=== PATIENT | female | born 1975 | race Caucasian/White ===

== ENCOUNTER 2016-09-19 18:15 | Emergency (ER) | payer BC ==
--- NOTE | 2016-09-19 18:19 | PDOC ---
Rapid Medical Evaluation Time Seen by Provider: 09/19/16 18:17 Medical Evaluation: Allergies Allergy/AdvReac Type Severity Reaction Status Date / Time sumatriptan [From Imitrex] Allergy Verified 09/19/16 18:17 sumatriptan succinate Allergy Verified 09/19/16 18:17 [From Imitrex] 09/19/16 18:17 41 year old female with a history of migraines presenting with headache, photophobia, and nausea since 4am. No relief from Tylenol/ibuprofen. V/s unremarkable. -UA, urine -To Main ED for further evaluation
[2016-09-19 18:21] VITALS: BMI 27.3
[2016-09-19 18:37] LABS: URINE APPEARANCE CLEAR; URINE BILIRUBIN NEGATIVE (NEGATIVE); URINE BLOOD NEGATIVE (NEGATIVE); URINE COLOR LTYELLOW; URINE GLUCOSE (UA) NEGATIVE (NEGATIVE); URINE KETONE NEGATIVE (NEGATIVE); URINE NITRITE NEGATIVE (NEGATIVE); URINE PROTEIN NEGATIVE (NEGATIVE); URINE UROBILINOGEN NEGATIVE E.U./dl (0.2-1.0)
[2016-09-19] MEDS ORDERED: KETOROLAC TROMETHAMINE 60 MG/2 ML VIAL IM ONE (19:34)
[2016-09-19] MEDS ORDERED: SODIUM CHLORIDE 1,000 ML IV STA (19:36)
[2016-09-19] MEDS ORDERED: KETOROLAC TROMETHAMINE 30 MG/1 ML VIAL ONE (19:36)
--- NOTE | 2016-09-19 19:36 | PDOC ---
History of Present Illness - General History Source: Patient Exam Limitations: No Limitations - History of Present Illness Initial Comments: 09/19/16 19:58 The patient is a 41 year old female with significant past medical history of migraine headaches who presents to the ED with diffuse headache few hours prior to arrival. Patient reports she developed a diffuse headache today at 4pm that she rates as a 10/10 with associated photophobia and nausea, but no vomiting. She took tylenol without relief. States her migraines are not frequent and thus does not take any prescriptions for her migraines, however today it has been persistent with no resolution. The patient denies fever, chills, dizziness, visual changes, cough, SOB, chest pain, abdominal pain, and diarrhea. Allergies: sumatriptan, sumatriptan succinate Social History: No alcohol, tobacco, or drug use reported. Past Surgical History: None reported PCP: None reported <Valerie Melara - Last Filed: 09/19/16 19:58> - General History Source: Patient, Spouse <Monico Allan - Last Filed: 09/19/16 21:40> - General Chief Complaint: Migraine Headache Stated Complaint: MIGRAINE Time Seen by Provider: 09/19/16 18:17 Past History <Valerie Melara - Last Filed: 09/19/16 19:58> - Past Medical History Other medical history: migraines - Psycho/Social/Smoking Cessation Hx Anxiety: No Suicidal Ideation: No Smoking History: Never smoked Have you smoked in the past 12 months: Yes Information on smoking cessation initiated: No Hx Alcohol Use: No Drug/Substance Use Hx: No Substance Use Type: None <Monico Allan - Last Filed: 09/19/16 21:40> - Past Medical History Allergies/Adverse Reactions: Allergies Allergy/AdvReac Type Severity Reaction Status Date / Time sumatriptan [From Imitrex] Allergy Verified 09/19/16 18:17 sumatriptan succinate Allergy Verified 09/19/16 18:17 [From Imitrex] Home Medications: Ambulatory Orders Acetaminophen/Caffeine/Butalb [Fioricet -] 1 tab PO Q6H #30 tablet MDD 4 Amox-Tr/K Cl [Augmentin - 875Mg Tablet] 1 tab PO BID #14 tablet 09/19/16 Ibuprofen 800 mg PO TID #30 tablet 09/19/16 Metoclopramide HCl [Reglan -] 10 mg PO TID #30 tablet 09/19/16 Review of Systems - Review of Systems Able to Perform ROS?: Yes Comments:: 09/19/16 19:58 CONSTITUTIONAL: Absent: fever, no chills, no fatigue EYES: Absent: visual changes ENT: Absent: ear pain, no sore throat CARDIOVASCULAR: Absent: chest pain, no palpitations RESPIRATORY: Absent: cough, no SOB GI: +nausea Absent: abdominal pain, no vomiting, no constipation, no diarrhea GENITOURINARY: Absent: dysuria, no frequency, no hematuria MUSKULOSKELETAL: Absent: back pain, no arthralgia, no myalgia SKIN: Absent: rash NEURO: +headache, photophobia <Valerie Melara - Last Filed: 09/19/16 19:58> *Physical Exam - Vital Signs Last Vital Signs Temp Pulse Resp BP Pulse Ox 97.7 F 88 18 145/92 100 09/19/16 18:17 09/19/16 18:17 09/19/16 18:17 09/19/16 18:17 09/19/16 18:17 - Physical Exam Comments: 09/19/16 19:58 GENERAL: Well-appearing, well-nourished. Moderate distress. HEENT: Normocephalic, atraumatic. PERRL, EOM intact. CARDIOVASCULAR: Normal S1, S2. Regular rate and rhythm. PULMONARY: Clear to auscultation bilaterally. ABDOMEN: Soft, non-distended, non-tender. EXTREMITIES: Normal ROM in all four extremities. No gross deformities. SKIN: Warm, dry. No rash NEUROLOGICAL: AOx3. Photophobia. No focal neurological deficits. <Valerie Melara - Last Filed: 09/19/16 19:58> - Vital Signs Last Vital Signs Temp Pulse Resp BP Pulse Ox 97.7 F 88 18 145/92 100 09/19/16 18:17 09/19/16 18:17 09/19/16 18:17 09/19/16 18:17 09/19/16 18:17 <Monico Allan - Last Filed: 09/19/16 21:40> ED Treatment Course - LABORATORY CBC & Chemistry Diagram: 09/19/16 19:40 09/19/16 19:40 - ADDITIONAL ORDERS Additional order review: Laboratory Results 09/19/16 18:30 Urine Color Ltyellow Urine Appearance Clear Urine pH 5.0 Ur Specific Staples 1.025 Urine Protein Negative Urine Glucose (UA) Negative Urine Ketones Negative Urine Blood Negative Urine Nitrite Negative Urine Bilirubin Negative Urine Urobilinogen Negative Ur Leukocyte Esterase Trace H - Medications Given in the ED: ED Medications Discontinued Medications Generic Name Dose Route Start Last Admin Trade Name Pipe PRN Reason Stop Dose Admin Ketorolac Tromethamine 60 mg 09/19/16 19:34 09/19/16 19:51 Toradol Injection - IM 09/19/16 19:35 60 mg ONCE ONE Administration Morphine Sulfate 6 mg 09/19/16 19:49 09/19/16 19:51 Morphine Injection - IVPUSH 09/19/16 19:50 6 mg ONCE ONE Administration Ondansetron HCl 4 mg 09/19/16 19:37 09/19/16 19:51 Zofran Injection IVPUSH 09/19/16 19:38 4 mg ONCE STA Administration <Valerie Melara - Last Filed: 09/19/16 19:58> - LABORATORY CBC & Chemistry Diagram: 09/19/16 19:40 09/19/16 19:40 <Monico Allan - Last Filed: 09/19/16 21:40> Medical Decision Making - Medical Decision Making 09/19/16 21:38 Dr. Allan: The scribe's documentation has been prepared under my direction and personally reviewed by me in its entirery. I confirm that the note above accurately reflects all work, treatment, procedures, and medical decision making performed by me. Pt feels better after treatment in the department. Head ct scan is negative fro intracranial pathology. Pt found to have a sinusitis. Medication sent to pharmacy. Pt to be discharged <Monico Allan - Last Filed: 09/19/16 21:40> *DC/Admit/Observation/Transfer - Attestations Scribe Attestion: 09/19/16 19:58 Documentation prepared by Valerie Melara, acting as medical reception for Monico Allan MD <Valerie Melara - Last Filed: 09/19/16 19:58> - Discharge Dispostion Admit: No <Monico Allan - Last Filed: 09/19/16 21:40> Diagnosis at time of Disposition: Sinusitis Qualifiers: Sinusitis location: other Chronicity: acute Recurrence: non-recurrent Qualified Code(s): J01.80 - Other acute sinusitis Headache Qualifiers: Headache type: unspecified Intractability: not intractable - Discharge Dispostion Disposition: HOME Condition at time of disposition: Stable - Prescriptions Prescriptions: Amox-Tr/K Cl [Augmentin - 875Mg Tablet] 1 tab PO BID #14 tablet Acetaminophen/Caffeine/Butalb [Fioricet -] 1 tab PO Q6H #30 tablet MDD 4 Ibuprofen 800 mg PO TID #30 tablet Metoclopramide HCl [Reglan -] 10 mg PO TID #30 tablet - Referrals Referrals: Jose Soto MD [Staff Physician] - Stephen Mathew MD [Staff Physician] - - Patient Instructions Printed Discharge Instructions: DI for Migraine, DI for Sinusitis
[2016-09-19] MEDS ORDERED: ONDANSETRON 4 MG/2 ML VIAL IVPUSH STA (19:37)
[2016-09-19] MEDS ORDERED: morphine CARPU-JECT 2 MG/1 ML DISP.SYRIN IVPUSH ONE (19:49)
[2016-09-19 19:52] LABS: URINE LEUK ESTERASE TRACE (NEGATIVE)
[2016-09-19] MEDS ORDERED: ONDANSETRON 4 MG/2 ML VIAL ONE (19:52)
[2016-09-19] MEDS ORDERED: morphine CARPU-JECT 2 MG/1 ML DISP.SYRIN ONE (19:52)
[2016-09-19] MEDS ORDERED: morphine CARPU-JECT 4 MG/1 ML DISP.SYRIN ONE (19:52)
[2016-09-19 19:55] LABS: BASOPHIL 0.7 % (0-2.0); EOSINOPHIL 6.6 % (0-4.5); MCH 31.2 pg (25.7-33.7); MCHC 33.9 g/dl (32.0-36.0); MEAN CELL VOLUME 92.1 fl (80-96); MEAN PLT VOLUME 8.6 fl (7.5-11.1); NEUTROPHILS 57.1 % (42.8-82.8); PLATELET COUNT 199 K/MM3 (134-434); RDW 12.5 % (11.6-15.6); WHITE BLOOD COUNT 8.9 K/mm3 (4.0-10.0)
[2016-09-19 19:58] LABS: URINE BACTERIA RARE /hpf (NONE SEEN); URINE MUCUS RARE; URINE RBC 2 /hpf (0-3); URINE WBC 2 /hpf (3-5)
[2016-09-19] MEDS ORDERED: METOCLOPRAMIDE HCL INJECTION 10 MG/2 ML VIAL IVPUSH ONE (20:11)
[2016-09-19] MEDS ORDERED: METOCLOPRAMIDE HCL INJECTION 10 MG/2 ML VIAL ONE (20:13)
[2016-09-19 20:18] LABS: ALBUMIN 3.8 g/dl (3.4-5.0); ALK PHOS 44 U/L (45-117); ANION GAP 8 (8-16); BILIRUBIN,TOTAL 0.3 mg/dL (0.2-1.0); CALCIUM 8.8 mg/dL (8.5-10.1); CO2 27 mmol/L (21-32); CREATININE 0.6 mg/dL (0.55-1.02); GLUCOSE,RANDOM 95 mg/dL (74-106); SGOT/AST 17 U/L (15-37); SGPT/ALT 23 U/L (12-78); TOT PROT 7.1 g/dl (6.4-8.2)
[2016-09-19] MEDS ORDERED: ACETAMINOPHEN/CAFFEINE/BUTALBITAL 1 TAB PO ONE (21:14)
[2016-09-19] MEDS ORDERED: ACETAMINOPHEN/CAFFEINE/BUTALBITAL 1 TAB ONE (21:17)
[2016-09-19] MEDS ORDERED: AMOX TR/POT CLAV 875MG/125MG TABLETS (FP) PO STA (21:33)
[2016-09-19] MEDS ORDERED: AMOX TR/POT CLAV 875MG/125MG TABLETS (FP) ONE (21:37)
[2016-09-19 21:45] VITALS: BP 135/80; PULSE 87; TEMP 98.3
== END 2016-09-19 21:43 | disposition home or self-care (01) ==
LOC: JER 18:15
PROC: 3E0233Z Introduction of Anti-inflammatory into Muscle, Percutaneous Approach (ICD-10-PCS; principal; 2016-09-19)
PROC: 3E033NZ Introduction of Analgesics, Hypnotics, Sedatives into Peripheral Vein, Percutaneous Approach (ICD-10-PCS; 2016-09-19)
PROC: 3E033GC Introduction of Other Therapeutic Substance into Peripheral Vein, Percutaneous Approach (ICD-10-PCS; 2016-09-19)
DX: J01.80 Other acute sinusitis (principal); R51 Headache
CPT/HCPCS: 36415; 70450-TC; 80053; 81003; 81015; 84703; 85025; 99282-25